=== PATIENT | female | born 1985 ===

== ENCOUNTER 2020-06-09 06:34 | Inpatient (IN) ==
[2020-06-09] MEDS ORDERED: Buffered Lidocaine 1% SYRIN 1 ml INTRADERM ONE (08:20)
[2020-06-09] MEDS ORDERED: Lactated Ringers 1000 ml BAG 1,000 ML IV ONE (08:20)
[2020-06-09] MEDS ORDERED: Penicillin G Potassium IV 5,000,000 UNITS in NS 0.9% 100 ml BAG 100 ML IVPB ONE (08:30)
[2020-06-09] MEDS ORDERED: Lactated Ringers 1000 ml BAG 1,000 ML IV SCH (09:00)
[2020-06-09 09:24] LABS: Urine Benzodiazepine Screen None Detected (None Detect); Urine Cannabinoids Screen None Detected (None Detect); Urine Opiates Screen None Detected (None Detect)
[2020-06-09 10:14] LABS: ABS Eosinophils 0.2 10^3/ul (0-0.6); ABS Lymphocytes 2.8 10^3/ul (1.0-4.8); ABS Neutrophils 10.7 10^3/ul (1.5-7.7); Eosinophil % 1.3 %; Hematocrit 37 % (35-47); Hemoglobin 12.3 g/dL (12.0-16.0); Mean Corpuscular HGB Conc 33 g/dL (31-36); Mean Corpuscular Hemoglobin 30 pg (27-31); Mean Corpuscular Volume 92 fL (80-97); Platelet Count 239 10^3/uL (150-450); Red Blood Count 4.07 10^6 /uL (3.70-4.87); Red Cell Distribution Width 13 % (10-15); White Blood Count 14.7 10^3/uL (3.5-10.8)
[2020-06-09] MEDS: Penicillin G Potassium IV 3,000,000 UNITS in NS 0.9% 100 ml BAG 100 ML IVPB SCH ×3 (13:15→20:53)
[2020-06-09] MEDS ORDERED: OBEPIDURAL 250 ML EPIDURAL ONE (18:57)
[2020-06-09] MEDS ORDERED: Lidocaine 1% VIAL 10 MG/ML VIAL ONE (19:04)
[2020-06-09] MEDS ORDERED: Chloroprocaine 3% 20 ml VIAL ONE (19:06)
[2020-06-09] MEDS ORDERED: Oxytocin in LR 20 UNITS/1,000 ML BAG IVPB ONE (20:15)
[2020-06-10] MEDS ORDERED: Witch Hazel PAD JAR TOPICAL PRN (00:35)
[2020-06-10] MEDS ORDERED: Dibucaine 1% OINT 28.35 GM TUBE PR PRN (00:35)
[2020-06-10] MEDS ORDERED: Glycerin ADULT 2.4 gm SUPP PR PRN (00:35)
[2020-06-10] MEDS ORDERED: Oxytocin in LR 20 UNITS/1,000 ML BAG IVPB SCH (01:00)
[2020-06-10] MEDS ORDERED: Lactated Ringers 1000 ml BAG 1,000 ML IV SCH (01:00)
[2020-06-10] MEDS: Penicillin G Potassium IV 3,000,000 UNITS in NS 0.9% 100 ml BAG 100 ML IVPB SCH (05:26)
[2020-06-11 07:01] LABS: ABS Basophils 0.1 10^3/ul (0-0.2); ABS Eosinophils 0.2 10^3/ul (0-0.6); ABS Lymphocytes 3.4 10^3/ul (1.0-4.8); ABS Monocytes 1.1 10^3/ul (0-0.8); ABS Neutrophils 10.9 10^3/ul (1.5-7.7); Eosinophil % 1.4 %; Hematocrit 33 % (35-47); Lymphocyte % 21.4 %; Mean Corpuscular HGB Conc 33 g/dL (31-36); Mean Corpuscular Hemoglobin 31 pg (27-31); Mean Corpuscular Volume 93 fL (80-97); Mean Platelet Volume 9.1 fL (7.4-10.4); Platelet Count 209 10^3/uL (150-450); Red Blood Count 3.56 10^6 /uL (3.70-4.87); Red Cell Distribution Width 13 % (10-15); White Blood Count 15.7 10^3/uL (3.5-10.8)
[2020-06-11 09:36] VITALS: BP 117/70
== END 2020-06-11 13:52 | disposition home or self-care (01) | DRG 560 ==
LOC: MCHOBOUT 06:34 → MCHOB 08:21
PROVIDERS: ADMIT Midwife; ATTEND Midwife